=== PATIENT | female | born 1990 ===

== ENCOUNTER 2020-03-27 11:48 | Emergency (ER) | payer BC, SELFPAY ==
--- NOTE | ~2020-03-27 | US_ITS ---
US venous doppler [facility] DATE: 03/27/2020 13:01 INDICATION: Left calf pain following 12 hour car ride TECHNIQUE: Real-time and color flow imaging and Doppler analysis of the veins of the left leg COMPARISON: None FINDINGS: The greater saphenous vein is patent. Thrombus is identified within the left gastrocnemius vein, with loss of compression. There is a small amount of thrombus within the left popliteal vein. The common femoral, femoral, posterior tibial and peroneal veins are patent. IMPRESSION: Left gastrocnemius thrombosis There is a small amount of thrombus identified in the left popliteal vein Dr. Monreal telephoned the report to ER Physician Recreation Specialist Ernst on 03/27/2020 at 1317 hours. Reviewed, dictated and finalized at [facility]. Reviewed, dictated and finalized at [facility].
[2020-03-27 12:00] VITALS: BP 131/84; PULSE 97; RESP 18; TEMP 36.8; O2SAT 97
[2020-03-27 13:38] LABS: Basophils Percent Auto 0.5 % (0.2-1.2); Eosinophils Absolute Auto 0.2 K/mm3 (0-0.3); Eosinophils Percent Auto 2.4 % (0-4.4); Hematocrit 37.7 % (37.0-47.0); Immature Granulocyte Absolute 0.02 K/mm3 (0.00-0.031); Immature Granulocyte Percent A 0.3 % (0-0.5); Lymphocytes Percent Auto 33.4 % (18.3-44.2); Mean Corpuscular HGB Conc 34.5 g/dl (32-36); Mean Corpuscular Volume 87.1 fl (80-100); Mean Platelet Volume 10.5 fl (7.4-10.4); Monocytes Absolute Auto 0.4 K/mm3 (0.1-0.6); Monocytes Percent Auto 6.1 % (2.6-8.5); Neutrophils Absolute Auto 3.6 K/mm3 (1.3-6.7); Neutrophils Percent Auto 57.3 % (45.5-73.1); Platelet Count Result 180 k/mm3 (150-375); Red Blood Count 4.33 M/mm3 (4.2-5.4); Red Cell Distribution Width 12.1 % (11.5-14.5); White Blood Count 6.3 K/mm3 (4.5-10.0)
[2020-03-27 13:49] LABS: Blood Urea Nitrogen 9 mg/dL (7-17); Calcium 9.4 mg/dL (8.4-10.2); Carbon Dioxide 24 mmol/L (22-30); Chloride 104 mmol/L (98-107); Estimated CRCL calculation 102 ml/min; Estimated Glomerular Filt Rate > 60; Glucose 81 mg/dL (65-105); Sodium 137 mmol/L (137-145)
--- NOTE | 2020-03-27 14:26 | ED.LOWEXIN ---
HPI - Extremity Injury (Lower) General Chief Complaint: Extremity Injury, Lower <Ángel Betancourt PA-C - Last Filed: 03/27/20 14:30> Stated Complaint: LEG PAIN AFTER LONG DRIVE <Ángel Betancourt PA-C - Last Filed: 03/27/20 14:30> Time Seen by Provider: 03/27/20 12:39 <Ángel Betancourt PA-C - Last Filed: 03/27/20 14:30> Source: patient <Ángel Betancourt PA-C - Last Filed: 03/27/20 14:30> Mode of arrival: ambulatory <NEYDA Mao Last Filed: 03/27/20 14:30> Limitations: no limitations <Ángel Betancourt PA-C - Last Filed: 03/27/20 14:30> History of Present Illness HPI Narrative: Patient is a 29-year-old female who presents for evaluation of left leg pain noting some mild aching pain to the left calf for the last couple of days recently had a [place] and was concerned for DVT patient denies similar occurrence in the past or any chest pain shortness of breath lightheadedness or dizziness <Ángel Betancourt PA-C - Last Filed: 03/27/20 14:30> Related Data Allergies/Adverse Reactions: Allergies Allergy/AdvReac Type Severity Reaction Status Date / Time No Known Allergies Allergy Mild Verified 03/27/20 12:30 <Ángel Betancourt PA-C - Last Filed: 03/27/20 14:30> Review of Systems Review of Systems: All systems reviewed & are unremarkable except as noted in HPI and below <Ángel Betancourt PA-C - Last Filed: 03/27/20 14:30> [facility] Family History Family History: Family History (Updated 08/12/18 @ 13:16 by DOCTOR UNKNOWN) Father Family history of hypercholesterolemia Hypertension <Ángel Betancourt PA-C - Last Filed: 03/27/20 14:30> Social History Social History: Social History Smoking status: Never smoker Alcohol intake: never Gender identity (if verbalized by the patient): Female <NEYDA Mao Last Filed: 03/27/20 14:30> Exam Narrative: Exam Narrative: GENERAL: Well-appearing, well-nourished, and in no acute distress. HEAD: Normocephalic, atraumatic. EYES: PERRLA and EOMI. ENT: Nares clear, no rhinorrhea or epistaxis. Mucous membranes moist. CHEST: Clear to auscultation. No respiratory distress. No wheezes rales or rhonchi HEART: Regular rate and rhythm. No murmur heard. Normal peripheral pulses. EXTREMITIES: Normal range of motion. No edema. SKIN: Warm, dry, no rash. Tenderness left calf no deformities noted NEURO: No focal deficits. Alert and oriented x3. Neurovascularly intact. Capillary refill less than 2 seconds PSYCH: Normal mood and affect. <NEYDA Mao Last Filed: 03/27/20 14:30> Course Course Emergency Course: Patient in the room in no distress aware of case findings treatment plan and diagnosis agreeing to follow-up as directed or to return if symptoms worsen or concerns <NEYDA Mao Last Filed: 03/27/20 14:30> Vital Signs Vital signs: Vital Signs Temperature 98.3 F 03/27/20 12:00 Pulse Rate 97 03/27/20 12:00 Respiratory Rate 18 03/27/20 12:00 Blood Pressure 131/84 03/27/20 12:00 Pulse Oximetry 97 03/27/20 12:00 Temperature 98.3 F 03/27/20 12:00 Pulse Rate 97 03/27/20 12:00 Respiratory Rate 20 03/27/20 15:27 Blood Pressure 131/84 03/27/20 12:00 Pulse Oximetry 99 03/27/20 15:27 <NEYDA Mao Last Filed: 03/27/20 14:30> Vital Signs Temperature 98.3 F 03/27/20 12:00 Pulse Rate 97 03/27/20 12:00 Respiratory Rate 18 03/27/20 12:00 Blood Pressure 131/84 03/27/20 12:00 Pulse Oximetry 97 03/27/20 12:00 Temperature 98.3 F 03/27/20 12:00 Pulse Rate 97 03/27/20 12:00 Respiratory Rate 20 03/27/20 15:27 Blood Pressure 131/84 03/27/20 12:00 Pulse Oximetry 99 03/27/20 15:27 <Breanne Ojeda MD - Last Filed: 03/27/20 15:45> MDM - Extremity Injury (Lower) MDM Narrative Medical decision making na
[2020-03-27] MEDS: APIXABAN 5 MG TABLET 10 MG PO (15:24)
[2020-03-27 15:27] VITALS: RESP 20; O2SAT 99
== END 2020-03-27 15:30 | disposition home or self-care (01) ==
PROVIDERS: Emergency Medicine Emergency Medical Services; Emergency Provider Emergency Medicine
DX: I82.462 Acute embolism and thrombosis of left calf muscular vein (principal); I82.432 Acute embolism and thrombosis of left popliteal vein
CPT/HCPCS: 36415; 80048; 85025; 93971; 99284; A9270